=== PATIENT | female | born 1950 | race Caucasian/White ===

== ENCOUNTER → 2017-11-14 | Outpatient (CLI) | payer MEDICARE ==
--- NOTE | 2017-11-14 14:27 | RADIOLOGY REPORT (SQ) ---
EXAM DESCRIPTION: CT LUNG CANCER SCREENING COMPLETED DATE/TIME: 11/14/2017 1:57 pm REASON FOR STUDY: WHEEZING (R06.2),NICOTINE DEPENDENCE (F17.218) R06.2 WHEEZING Z12.2 ENCNTR SCREE N FOR MALIGNANT NEOPLASM OF RESPIRATORY OR F17.218 NICOTINE DEPENDENCE, CIGARETTES, W OTH DISORDERS COMPARISON: None. TECHNIQUE: Low Dose CT scan performed of the chest without intravenous contrast for purposes of scre ening for lung cancer. Images reviewed with lung, soft tissue and bone windows. Reconstructed coron al and sagittal MPR images reviewed. All images stored on PACS. All CT scanners at this facility use dose modulation, iterative reconstruction, and/or weight based d osing when appropriate to reduce radiation dose to as low as reasonably achievable (ALARA). [facility]: Dose Right [facility]: CareDose [facility]: Dose Right [facility]: Teradose 4D [facility]: Smart [employer] RADIATION DOSE: CT Rad equipment meets quality standard of care and radiation dose reduction techniq ues were employed. CTDIvol: 2.0 mGy. DLP: 77 mGy-cm. mGy. . LIMITATIONS: No technical limitations. FINDINGS: LUNG NODULES: Spiculated mass in the right lower lobe measuring 3.5 x 5.0 cm. The mass a buts the pleura with mild pleural retraction. A few small, 2 to 3 mm, nodules in the right upper lob e (axial series 3, image 34 and 52. A few calcified granulomas. REMAINING LUNGS AND PLEURA: No pleural effusions or calcifications. No pneumothorax. Apical sca rring. HILAR AND MEDIASTINAL STRUCTURES: No identified masses. No abnormal nodes. HEART AND VASCULAR STRUCTURES: No aortic aneurysm. No pericardial effusion. No cardiac devices. CORONARY ARTERY CALCIFICATIONS: No significant calcifications. UPPER ABDOMEN: No significant findings. THYROID AND OTHER SOFT TISSUES: No masses. No adenopathy. BONES: No significant finding. OTHER: No other significant findings. IMPRESSION: 5 CM SPICULATED MASS IN THE RIGHT LOWER LOBE, CONSISTENT WITH MALIGNANCY. NO OTHER CLINICALLY SIGNIFICANT/POTENTIALLY CLINICALLY SIGNIFICANT FINDINGS LUNGRADS: LUNGRADS: 4B SUSPICIOUS; FINDINGS FOR WHICH ADDITIONAL DIAGNOSTIC TESTING AND/OR TISSUE SA MPLING IS RECOMMENDED. MODIFIER: NONE. RECOMMENDATION: Chest CT with or without contrast, PET/CT, and/or tissue sampling depending on the p robability or malignancy and comorbidities. PET/CT may be used when there is a ? 8 mm solid componen t. COMMENT: CRITERIA: Solid nodule(s): ? 15 mm OR new or growing and ? 8 mm. Part solid nodule(s): A solid component ? 8 mm OR a new or growing ? 4 mm solid component. TECHNICAL DOCUMENTATION: JOB ID: [id number] Quality ID # 436: Final reports with documentation of one or more dose reduction techniques (e.g., Au tomated exposure control, adjustment of the mA and/or kV according to patient size, use of iterative reconstruction technique) [address] [place] [address] Radiology Reading location - IP/workstation name: [email or web address]
== END ==
LOC: RAD 13:36
PROVIDERS: ATTEND Internal Medicine
DX: Z12.2 Encounter for screening for malignant neoplasm of respiratory organs (principal); F17.218 Nicotine dependence, cigarettes, with other nicotine-induced disorders; R91.8 Other nonspecific abnormal finding of lung field
CPT/HCPCS: G0297

== ENCOUNTER 2017-11-22 08:43 | Day surgery (SDC) | payer MEDICARE ==
[2017-11-22 10:35] LABS: HEMATOCRIT 37.2 % (36.0-47.0); HEMOGLOBIN 12.7 g/dL (12.0-15.5); MEAN CORPUSCULAR HEMOGLOBIN 31.6 pg (27.0-33.4); MEAN CORPUSCULAR HGB CONC 34.3 g/dL (32.0-36.0); MEAN CORPUSCULAR VOLUME 92 fl (80-97); PLATELET COUNT 244 10^3/uL (150-450); RED BLOOD COUNT 4.03 10^6/uL (3.72-5.28); RED CELL DISTRIBUTION WIDTH 13.5 % (11.5-14.0); WHITE BLOOD COUNT 8.3 10^3/uL (4.0-10.5)
[2017-11-22] MEDS ORDERED: FENTANYL CITRATE INJ/PF 100 MCG/2 ML AMPUL ONE (11:31)
[2017-11-22] MEDS ORDERED: MIDAZOLAM 2 MG/2 ML INJ ONE (11:31)
[2017-11-22] MEDS ORDERED: LIDOCAINE 1% INJ-PF (10 MG/ML) 30 ML SDV ONE (11:31)
--- NOTE | 2017-11-22 12:52 | RADIOLOGY REPORT (SQ) ---
EXAM DESCRIPTION: CHEST SINGLE VIEW COMPLETED DATE/TIME: 11/22/2017 12:31 pm REASON FOR STUDY: POST LUNG BIOPSY COMPARISON: None. EXAM PARAMETERS: NUMBER OF VIEWS: One view. TECHNIQUE: Single frontal radiographic view of the chest acquired. RADIATION DOSE: NA LIMITATIONS: None. FINDINGS: LUNGS AND PLEURA: Mass in the right lung base. No pneumothorax. Left lung clear. MEDIASTINUM AND HILAR STRUCTURES: No masses. Contour normal. HEART AND VASCULAR STRUCTURES: Heart normal in size. Normal vasculature. BONES: No acute findings. HARDWARE: None in the chest. OTHER: No other significant finding. IMPRESSION: NO PNEUMOTHORAX FOLLOWING PERCUTANEOUS LUNG MASS BIOPSY. TECHNICAL DOCUMENTATION: JOB ID: [id number] [employer]- All Rights Reserved Reading location - IP/workstation name: [email or web address]
--- NOTE | 2017-11-22 14:13 | RADIOLOGY REPORT (SQ) ---
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 FLUORO TIME: 2.2 seconds. LIMITATIONS: None. PROCEDURE: After obtaining informed consent, the patient was brought to the CT suite and was placed supine on the CT gurney. The patient was prepped and draped in the usual sterile fashion . Axial mayra ges were obtained for targeting of theright lower lobe. An appropriate access site was selected. IV s edation was administered and physician direction by the registered nurse using 1 milligrams of Versed and 50 micrograms of fentanyl. Physiologic monitoring was provided before, during, and after sedatio n. The total sedation time was 30 minutes. Documentation face to face time, the performing proceduralist, spent monitoring the patient: [address] scanners at this facility use dose modulation, iterative reconstruction, and/or weight based d osing when appropriate to reduce radiation dose to as low as reasonably achievable (ALARA). [facility]: Dose Right [facility]: CareDose [facility]: Dose Right [facility]: Teradose 4D [facility]: [employer] After sterile skin prep and local lidocaine for skin and deep tissue anesthesia, a coaxial biopsy nee dle was used to obtain multiple cores of tissue. The biopsy tissue was submitted to the lab. There we re no immediate complications. Pathology is pending at the time of dictation. IMPRESSION: SUCCESSFUL PERCUTANEOUS CT-GUIDED BIOPSY OF THE LESION IN THE RIGHT LOWER LOBE. COMMENT: Patient medication list reviewed: Yes- Quality ID# 130:Eligible professional attests to doc umenting in the medical record they obtained, updated, or reviewed the patient's current medications. . Quality ID #76: The patient was prepped and draped using maximum sterile barrier technique including cap, mask, sterile gown, sterile gloves, a large sterile sheet, hand hygiene, and 2% Chlorhexidine fo r cutaneous antisepsis. When ultrasound is used, sterile ultrasound techniques are followed requiring sterile gel and sterile probes. Quality ID 145: Final reports for procedures using fluoroscopy that document radiation exposure henry dena, or exposure time and number of fluorographic images (if radiation exposure indices are not avail able) Quality ID # 436: Final reports with documentation of one or more dose reduction techniques (e.g., Au tomated exposure control, adjustment of the mA and/or kV according to patient size, use of iterative reconstruction technique) TECHNICAL DOCUMENTATION: JOB ID: [id number] [employer]- All Rights Reserved Reading location - IP/workstation name: [email or web address] [id number]
--- NOTE | 2017-11-22 14:13 | RADIOLOGY REPORT (SQ) ---
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 FLUORO TIME: 2.2 seconds. LIMITATIONS: None. PROCEDURE: After obtaining informed consent, the patient was brought to the CT suite and was placed supine on the CT gurney. The patient was prepped and draped in the usual sterile fashion . Axial mayra ges were obtained for targeting of theright lower lobe. An appropriate access site was selected. IV s edation was administered and physician direction by the registered nurse using 1 milligrams of Versed and 50 micrograms of fentanyl. Physiologic monitoring was provided before, during, and after sedatio n. The total sedation time was 30 minutes. Documentation face to face time, the performing proceduralist, spent monitoring the patient: [address] scanners at this facility use dose modulation, iterative reconstruction, and/or weight based d osing when appropriate to reduce radiation dose to as low as reasonably achievable (ALARA). [facility]: Dose Right [facility]: CareDose [facility]: Dose Right [facility]: Teradose 4D [facility]: [employer] After sterile skin prep and local lidocaine for skin and deep tissue anesthesia, a coaxial biopsy nee dle was used to obtain multiple cores of tissue. The biopsy tissue was submitted to the lab. There we re no immediate complications. Pathology is pending at the time of dictation. IMPRESSION: SUCCESSFUL PERCUTANEOUS CT-GUIDED BIOPSY OF THE LESION IN THE RIGHT LOWER LOBE. COMMENT: Patient medication list reviewed: Yes- Quality ID# 130:Eligible professional attests to doc umenting in the medical record they obtained, updated, or reviewed the patient's current medications. . Quality ID #76: The patient was prepped and draped using maximum sterile barrier technique including cap, mask, sterile gown, sterile gloves, a large sterile sheet, hand hygiene, and 2% Chlorhexidine fo r cutaneous antisepsis. When ultrasound is used, sterile ultrasound techniques are followed requiring sterile gel and sterile probes. Quality ID 145: Final reports for procedures using fluoroscopy that document radiation exposure henry dena, or exposure time and number of fluorographic images (if radiation exposure indices are not avail able) Quality ID # 436: Final reports with documentation of one or more dose reduction techniques (e.g., Au tomated exposure control, adjustment of the mA and/or kV according to patient size, use of iterative reconstruction technique) TECHNICAL DOCUMENTATION: JOB ID: [id number] [employer]- All Rights Reserved Reading location - IP/workstation name: [email or web address] [id number]
--- NOTE | 2017-11-22 15:27 | RADIOLOGY REPORT (SQ) ---
EXAM DESCRIPTION: CHEST SINGLE VIEW COMPLETED DATE/TIME: 11/22/2017 2:32 pm REASON FOR STUDY: POST LUNG BIOPSY*2 HOUR FILM* COMPARISON: 11/22/2017 EXAM PARAMETERS: NUMBER OF VIEWS: One view. TECHNIQUE: Single frontal radiographic view of the chest acquired. RADIATION DOSE: NA LIMITATIONS: None. FINDINGS: LUNGS AND PLEURA: Right lower lung mass is once again seen. There is no pneumothorax. No acute infiltrate or effusion is seen. MEDIASTINUM AND HILAR STRUCTURES: No masses. Contour normal. HEART AND VASCULAR STRUCTURES: Heart normal in size. Normal vasculature. BONES: No acute findings. HARDWARE: None in the chest. OTHER: No other significant finding. IMPRESSION: Right lung mass with no pneumothorax status post biopsy. TECHNICAL DOCUMENTATION: JOB ID: [id number] [employer]- All Rights Reserved Reading location - IP/workstation name: [email or web address]
[2017-11-22 15:53] VITALS: BP 144/74
== END 2017-11-22 15:53 | disposition home or self-care (01) ==
LOC: RAD 08:43
PROVIDERS: ATTEND Internal Medicine
PROC: 0BBF3ZX Excision of Right Lower Lung Lobe, Percutaneous Approach, Diagnostic (ICD-10-PCS; principal; 2017-11-22)
DX: C34.31 Malignant neoplasm of lower lobe, right bronchus or lung (principal); I10 Essential (primary) hypertension; E03.9 Hypothyroidism, unspecified; F17.210 Nicotine dependence, cigarettes, uncomplicated; Z79.01 Long term (current) use of anticoagulants
CPT/HCPCS: 36415; 84520; 82565; 85027; 85610; 85730; 88342 ×2; 88341 ×2; 88305 ×2; 71045; 77012; 32405; J2250; J3010; J3490

== ENCOUNTER → 2017-12-06 | Outpatient (CLI) | payer MEDICARE ==
--- NOTE | 2017-12-08 08:12 | RADIOLOGY REPORT (SQ) ---
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 TECHNIQUE: Blood glucose level was verified. Above dose of FDG was injected intravenously. 2-D seg mented attenuation correction images were obtained from the base of the skull to the midthighs. Nonc ontrast CT images were obtained for attenuation correction and fusion with emission images. CT image s were performed without oral or intravenous contrast and are not sensitive for parenchymal lesions. A series of overlapping emission PET images were obtained. Images reviewed and manipulated at [facility] work station by the radiologist. Images stored on PACS. LIMITATIONS: None. FINDINGS: HEAD AND NECK: No areas of abnormal metabolic activity in the soft tissues of the head and neck. CHEST: A 5 x 4 cm hypermetabolic spiculated mass is present in the lateral basal segment of the right lower lobe. This has SUV of 13.5, and has been previously biopsied demonstrating poorly differentia francis adenocarcinoma. There is a precarinal metabolically active lymph node, 1.7 x 0.9 cm on axial image 88, with SUV of 3. 5. ABDOMEN AND PELVIS: No areas of abnormal metabolic activity in the abdomen or pelvis. Expected physi ologic activity is present in the genitourinary system and bowel. PROXIMAL LOWER EXTREMITIES: No areas of abnormal metabolic activity in the soft tissues of the lower extremities. BONES: No abnormal metabolic activity in the visualized skeleton. ADDITIONAL CT FINDINGS: Degenerative changes throughout the spine. Small hiatal hernia. Obstructive lung disease. OTHER: Liver background activity 2.0 SUV. Blood pool background activity 1.6 SUV IMPRESSION: Malignant right lower lobe mass with single hypermetabolic precarinal lymph node in the mediastinum TECHNICAL DOCUMENTATION: JOB ID: [id number]- All Rights Reserved Reading location - IP/workstation name: [facility]
== END ==
LOC: RAD 16:28
PROVIDERS: ATTEND Internal Medicine Medical Oncology
DX: C34.31 Malignant neoplasm of lower lobe, right bronchus or lung (principal)
CPT/HCPCS: 78815; A9552

== ENCOUNTER → 2017-12-14 | Outpatient (CLI) | payer MEDICARE ==
[~2017-12-14] MED LIST: ALBUTEROL SULFATE 0.083% NEB 2.5 MG/3 ML AMPUL NEB ONE
--- NOTE | 2017-12-14 16:43 | Pulmonary Function Test ---
Pulmonary Function Test Date of Procedure:: 12/14/17 INDICATION:: Dyspnea Referring Provider: Dr. Ruiz Metal Bonding Assembler: Yelena Chi DISPOSITION CLERK - Report Spirometry: FVC 3.35 L 105% postbronchodilator 3.40 L 108% FEV1 1.96 L 77% postbronchodilator 2.0 L 79% FEV1/FVC % 58 postbronchodilator 59 Predicted 81 FEF 25-75% 0.69 L 28% postbronchodilator 0.73 L 28% Diffusion Capactity: Diffusion capacity 2.13 65% DLCO/VA 3.02 82% Impression: mild obstructive ventilatory defect with insignificant response to bronchodilator therapy this in and of itself does not preclude a clinical trial of bronchodilator therapy.. Mild decrease in diffusion capacity.
== END ==
LOC: RT 10:07
PROVIDERS: ATTEND Internal Medicine Medical Oncology
DX: C34.90 Malignant neoplasm of unspecified part of unspecified bronchus or lung (principal); R06.02 Shortness of breath
CPT/HCPCS: 94729; 94060; A9270

== ENCOUNTER 2019-11-10 14:06 | Emergency (ER) | payer MEDICARE ==
--- NOTE | 2019-11-10 14:24 | RADIOLOGY REPORT (SQ) ---
EXAM DESCRIPTION: CT HEAD WITHOUT COMPLETED DATE/TIME: 11/10/2019 2:11 pm REASON FOR STUDY: stroke alert COMPARISON: None. TECHNIQUE: Axial images acquired through the brain without intravenous contrast. Images reviewed wi th bone, brain and subdural windows. Additional sagittal and coronal reconstructions were generated. Images stored on PACS. All CT scanners at this facility use dose modulation, iterative reconstruction, and/or weight based d osing when appropriate to reduce radiation dose to as low as reasonably achievable (ALARA). [facility]: Dose Right [facility]: CareDose [facility]: Dose Right [facility]: Teradose 4D [facility]: [employer] RADIATION DOSE: mGy. LIMITATIONS: None. FINDINGS: VENTRICLES: Prominent. CEREBRUM: No masses. No hemorrhage. No midline shift. Areas of low density in the white matter mos t likely due to chronic micro-vascular ischemic change. Dense basal ganglia calcifications in white matter calcifications. No evidence for acute infarction. CEREBELLUM: No masses. No hemorrhage. No alteration of density. White matter calcifications. No e vidence for acute infarction. EXTRAAXIAL SPACES: Mild age-related involutional change. No fluid collections. No masses. ORBITS AND GLOBE: No intra- or extraconal masses. Normal contour of globe without masses. CALVARIUM: No fracture. PARANASAL SINUSES: No fluid or mucosal thickening. SOFT TISSUES: No mass or hematoma. OTHER: No other significant finding. IMPRESSION: MILD CHRONIC CHANGES OF ATROPHY AND MICROVASCULAR ISCHEMIA. NO ACUTE PROCESS. EVIDENCE OF ACUTE STROKE: NO. COMMENT: Pertinent positive or negative findings of the imaging study reported as a CRITICAL EXAM t o ER PROVIDER at14:15 on 11/10/2019. Category of Critical Exam: Stroke alert. TECHNICAL DOCUMENTATION: JOB ID: [id number] Quality ID # 436: Final reports with documentation of one or more dose reduction techniques (e.g., Au tomated exposure control, adjustment of the mA and/or kV according to patient size, use of iterative reconstruction technique) 2010 [email or web address]- All Rights Reserved Reading location - IP/workstation name: [email or web address]
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
[2019-11-10 14:30] LABS: INTERNATIONAL RATION (INR) 1.12; PROTHROMBIN TIME 14.5 SEC (11.4-15.4)
[2019-11-10 14:32] LABS: ABSOLUTE BASOPHILS # (AUTO) 0.1 10^3/uL (0.0-0.2); ABSOLUTE EOSINOPHILS # (AUTO) 0.3 10^3/uL (0.0-0.6); ABSOLUTE LYMPHOCYTES (AUTO) 1.5 10^3/uL (0.5-4.7); ABSOLUTE MONOCYTES (AUTO) 0.7 10^3/uL (0.1-1.4); ABSOLUTE NEUT (AUTO) 7.1 10^3/uL (1.7-8.2); BASOPHILS % (AUTO) 0.6 % (0-2); EOSINOPHILS % (AUTO) 2.9 % (0-6); HEMATOCRIT 35.4 % (36.0-47.0); HEMOGLOBIN 12.6 g/dL (12.0-15.5); LYMPHOCYTES % (AUTO) 15.7 % (13-45); MEAN CORPUSCULAR HEMOGLOBIN 33.7 pg (27.0-33.4); MEAN CORPUSCULAR HGB CONC 35.6 g/dL (32.0-36.0); MEAN CORPUSCULAR VOLUME 95 fl (80-97); MONOCYTES % (AUTO) 7.1 % (3-13); PLATELET COUNT 237 10^3/uL (150-450); RED BLOOD COUNT 3.74 10^6/uL (3.72-5.28); RED CELL DISTRIBUTION WIDTH 13.6 % (11.5-14.0); SEGMENTED NEUTROPHILS % (AUTO) 73.7 % (42-78); TOTAL CELLS COUNTED % (AUTO) 100 %; WHITE BLOOD COUNT 9.6 10^3/uL (4.0-10.5)
--- NOTE | 2019-11-10 14:33 | RADIOLOGY REPORT (SQ) ---
EXAM DESCRIPTION: CHEST SINGLE VIEW COMPLETED DATE/TIME: 11/10/2019 2:24 pm REASON FOR STUDY: stroke alert COMPARISON: 11/22/2017. EXAM PARAMETERS: NUMBER OF VIEWS: One view. TECHNIQUE: Single frontal radiographic view of the chest acquired. RADIATION DOSE: NA LIMITATIONS: None. FINDINGS: LUNGS AND PLEURA: Scarring in the right lung base. No infiltrates, masses or pneumothorax . No pleural effusion. MEDIASTINUM AND HILAR STRUCTURES: No masses. Contour normal. HEART AND VASCULAR STRUCTURES: Heart upper limits of normal in size. Normal vasculature. BONES: No acute findings. HARDWARE: None in the chest. OTHER: No other significant finding. IMPRESSION: NO ACUTE RADIOGRAPHIC FINDING IN THE CHEST. TECHNICAL DOCUMENTATION: JOB ID: [id number] 2010 [employer] All Rights Reserved Reading location - IP/workstation name: [email or web address]
[2019-11-10 14:39] LABS: ALBUMIN 3.5 g/dL (3.5-5.0); ALKALINE PHOSPHATASE 99 U/L (38-126); ANION GAP 9 (5-19); ASPARTATE AMINO TRANSFERASE 23 U/L (14-36); BILIRUBIN,DIRECT 0.3 mg/dL (0.0-0.4); BILIRUBIN,TOTAL 0.5 mg/dL (0.2-1.3); BLOOD UREA NITROGEN 11 mg/dL (7-20); CALCIUM 8.7 mg/dL (8.4-10.2); CARBON DIOXIDE 27 mmol/L (22-30); CHLORIDE 102 mmol/L (98-107); CREATINE KINASE 75 U/L (30-135); GLUCOSE 90 mg/dL (75-110); POTASSIUM 3.8 mmol/L (3.6-5.0); TOTAL PROTEIN 6.9 g/dL (6.3-8.2)
[2019-11-10 14:50] LABS: CREATINE KINASE MB 1.46 ng/mL (<4.55); TROPONIN I 0.024 ng/mL
[2019-11-10 15:32] VITALS: BP 153/61
--- NOTE | 2019-11-10 15:40 | RADIOLOGY REPORT (SQ) ---
EXAM DESCRIPTION: KUB/ABDOMEN (SINGLE VIEW) COMPLETED DATE/TIME: 11/10/2019 3:11 pm REASON FOR STUDY: r/o metal for MRI COMPARISON: None. NUMBER OF VIEWS: One view. TECHNIQUE: Supine radiographic image of the abdomen acquired. LIMITATIONS: None. FINDINGS: BOWEL GAS PATTERN: Normal bowel gas pattern. No dilated loops. CALCIFICATIONS: No suspicious calcifications. SOFT TISSUES: No gross mass or suggestion of organomegaly. HARDWARE: Tubal ligation clips in the pelvis. BONES: No acute fracture. No worrisome bone lesions. OTHER: No other significant finding. IMPRESSION: NO RADIOGRAPHIC EVIDENCE FOR ACUTE ABDOMINAL DISEASE. TUBAL LIGATION CLIPS IN THE PELVI S. TECHNICAL DOCUMENTATION: JOB ID: [id number] 2010 [employer]- All Rights Reserved Reading location - IP/workstation name: [email or web address]
--- NOTE | 2019-11-10 17:27 | EKG REPORT ---
SEVERITY:- ABNORMAL ECG - SINUS TACHYCARDIA VENTRICULAR BIGEMINY PROBABLE LEFT ATRIAL ABNORMALITY LEFT BUNDLE BRANCH BLOCK : Confirmed by: Moira Treviño MD 10-Nov-2019 17:26:22
== END 2019-11-10 15:20 | disposition short-term general hospital (02) ==
LOC: ER 14:06
DX: I63.9 Cerebral infarction, unspecified (principal); R47.81 Slurred speech; G83.24 Monoplegia of upper limb affecting left nondominant side; R29.810 Facial weakness; R13.10 Dysphagia, unspecified; I10 Essential (primary) hypertension; J44.9 Chronic obstructive pulmonary disease, unspecified
CPT/HCPCS: 36415; 70450; 71045; 74018; 80053; 82550; 82553; 82962; 84484; 85025; 85610; 85730; 93005; 93010; 99291; 99292